=== PATIENT | female | born 2005 | race Two or more races ===

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

== ENCOUNTER 2023-03-03 20:09 | Emergency (ER) | payer OTHER ==
[2023-03-03 20:37] VITALS: BP 124/79; PULSE 74; RESP 18; TEMP 98; BMI 28.8
[2023-03-03] MEDS ORDERED: METOCLOPRAMIDE HCL INJECTION 10 MG/2 ML VIAL IVPB ONE (22:33)
[2023-03-03] MEDS ORDERED: ACETAMINOPHEN 1000 MG/100 ML BAG IVPB ONE (22:33)
[2023-03-03] MEDS ORDERED: SODIUM CHLORIDE 0.9% 500 ML INFUS.BAG IV ONE (22:33)
[2023-03-03] MEDS ORDERED: ACETAMINOPHEN INJECTION 100 ML IVPB ONE (22:46)
[2023-03-03] MEDS ORDERED: METOCLOPRAMIDE HCL INJECTION 10 MG/2 ML VIAL ONE (22:46)
[2023-03-03 23:04] LABS: BASO % 1.1 % (0-2.0); EOS % 4.9 % (0-4.5); HEMATOCRIT 34.5 % (32.4-45.2); HEMOGLOBIN 11.6 GM/dL (10.7-15.3); LYMPH % 24.7 % (8-40); MCH 27.9 pg (25.7-33.7); MCHC 33.7 g/dl (32.0-36.0); MEAN CELL VOLUME 82.8 fl (80-96); MEAN PLT VOLUME 7.3 fl (7.5-11.1); MONO % 8.9 % (3.8-10.2); NEUT % 60.4 % (42.8-82.8); PLATELET COUNT 295 10^3/uL (134-434); RBC 4.17 M/mm3 (3.60-5.2); RDW 14.5 % (11.6-15.6)
[2023-03-03 23:16] LABS: CALCIUM 8.8 mg/dL (8.5-10.1)
[2023-03-03 23:17] LABS: ALBUMIN 3.7 g/dl (3.4-5.0); BLOOD UREA NITROGEN 7.4 mg/dL (7-18); MAGNESIUM 1.9 mg/dL (1.8-2.4)
[2023-03-03 23:20] LABS: CREATININE 0.6 mg/dL (0.55-1.3)
[2023-03-03 23:22] LABS: BILIRUBIN,TOTAL 0.4 mg/dL (0.2-1); TOT PROT 7.7 g/dl (6.4-8.2)
== END 2023-03-04 00:51 | disposition home or self-care (01) ==
LOC: JER 20:09
PROC: 3E033NZ Introduction of Analgesics, Hypnotics, Sedatives into Peripheral Vein, Percutaneous Approach (ICD-10-PCS; principal; 2023-03-03)
PROC: 3E033GC Introduction of Other Therapeutic Substance into Peripheral Vein, Percutaneous Approach (ICD-10-PCS; 2023-03-03)
DX: J30.9 Allergic rhinitis, unspecified (principal); R51.9 Headache, unspecified
CPT/HCPCS: 36415; 70450-TC; 80053; 83735; 84703; 85025; 99284-25